=== PATIENT | male | born 1995 | race Caucasian/White ===

== ENCOUNTER → 2018-06-14 | Outpatient (CLI) | payer OTHER ==
--- NOTE | 2018-06-14 17:22 | KCIC ---
Examination: MRI of the left knee without contrast HISTORY: History of medial left knee pain, snowboarding injury COMPARISON: None available TECHNIQUE: Multiplanar, multisequence MR imaging of the left knee was performed without contrast. FINDINGS: The anterior cruciate ligament, posterior cruciate ligament appear intact. The lateral meniscus appears intact. There is increased T2 signal identified in the peripheral portion of the junction of the body and posterior horn of the medial meniscus the meniscocapsular junction could be secondary to injury/tear, best visualized on series 9 image 10. There is complete tear of the proximal medial collateral ligament with surrounding moderate to severe T2 signal likely edema secondary to injury. The posterior proximal portion of the medial patellofemoral ligament appears torn, best visualized on series 3 image 14. The lateral retinaculum appears intact. Moderate knee joint effusion. Small popliteal cyst identified. Mild soft tissue edema identified along the medial posterior capsule of the knee joint. Extensor mechanism is intact. The cartilage in the patellofemoral compartment, medial, lateral compartments grossly appears unremarkable. There is mild increased T2 signal identified in the lateral femoral condyle weightbearing region likely secondary to contusion. IMPRESSION: 1. Complete tear of the proximal medial collateral ligament with surrounding edema. There is likely partial tearing of the proximal and posterior portion of the medial patellofemoral ligament of the medial retinaculum. 2. Increased T2 signal identified in the peripheral portion of the junction of the body and posterior horn of the medial meniscus the meniscocapsular junction could be secondary to injury/tear, best visualized on series 9 image 10. 3. Mild trabecular edema secondary to contusion identified in the lateral femoral condyle. 4. Moderate knee joint effusion. Electronically signed by: Lucio Coates MD (06/14/2018 5:18 PM) [id number]
== END | disposition home or self-care (01) ==
LOC: KCIC MRI 15:54
PROVIDERS: ATTEND Family Medicine
DX: S83.412A Sprain of medial collateral ligament of left knee, initial encounter (principal); M71.22 Synovial cyst of popliteal space [Baker], left knee; Y93.23 Activity, snow (alpine) (downhill) skiing, snowboarding, sledding, tobogganing and snow tubing; Y93.89 Activity, other specified; Y92.89 Other specified places as the place of occurrence of the external cause; Y99.8 Other external cause status
CPT/HCPCS: 73721